=== PATIENT | male | born 1950 | race Caucasian/White ===

== ENCOUNTER 2016-11-15 | Inpatient (IN) | payer MEDICARE, OTHER ==
[~2016-11-15] VITALS: Ht 180.3 cm; Wt 91.6 kg
[~2016-11-15] MED LIST: ABILIFY DIS15 MG/TAB PO; ABILIFY PO; ALPRAZOLAM PO; AMLODIPINE BESY10 MG PO; ASPIRIN81 MG PO; BRILINTA90 MG PO; CITALOPRAM HBR40 MG PO; DEPAKOTE PO; DEPAKOTE250 MG PO; FENOFIBRATE160 MG PO; GABAPENTIN300 M2 PO; HCTZ PO; HYDROCHLOROTHIA25 MG PO; KLONOPIN PO; KLONOPIN1 MG PO; LIPITOR40 MG PO; LISINOPRIL PO; LISINOPRIL10 MG PO; LISINOPRIL20 MG PO; LORTAB 10/500 T1 TAB PO; NORVASC PO; OXYCODONE HCL10 MG PO; PROAIR HFA8.5 GM IH; REMERON45 MG PO; ROXICODONE15 MG PO; ROXICODONE30 M1 PO; SINGULAIR PO; SOMA PO; SYNTHROID25 MCG PO; TENORMIN25 MG PO; TIROSINT25 MCG PO; TYLENOL325 M1 PO; VICOPROFEN 200-1 TAB PO
--- NOTE | ~2016-11-15 | PA ---
Unit #: [id number] #: [id number] Patient: DANIEL FELIZ [id number] [facility] [address] [place] [address] [id number] I MR#: [id number] NAME: DANIEL FELIZ ROOM: P110 Age: 66 Sex: M Admission Date: 11/15/2016 : 1950 Date of Assessment: 11/08/2016 Attending Physician: Max Ferrell M.D. Admitting Physician: Max Ferrell M.D. Primary Care Physician: Generic Doctor Not In System PSYCHIATRIC ASSESSMENT DATE OF SERVICE 11/15/2016. INFORMANTS The patient, reliable; [facility] records, reliable; EPS, reliable. CHIEF COMPLAINT Suicidal ideation. HISTORY OF PRESENT ILLNESS Daniel is a 66-year-old man with a history of bipolar disorder, known to me from previous admissions and outpatient treatment. The patient reported that he wanted to and had multiple problems, especially financial where he has been giving his brother "thousands of dollars" which his brother then "lost." He felt hopeless, helpless, and could not contract for safety. [facility]. PAST PSYCHIATRIC HISTORY Last admission to this facility was in 11/2015. He has been off clonazepam since about a year ago based on his [facility] report. He is on paroxetine at this time. FAMILY PSYCHIATRIC HISTORY There is a family history of bipolar disorder. SOCIAL HISTORY The patient denied a history of childhood abuse or neglect. He is a heterosexual man with some previous legal charges. He is on long-term disability for medical issues. MEDICAL HISTORY Prostate cancer, coronary artery disease, hypothyroidism, hypertension, chronic pain. MEDICATIONS Please see MAR. ALLERGIES Codeine. SUBSTANCE ABUSE HISTORY History of occasional alcohol use. MENTAL STATUS EXAMINATION Unit #: [id number] #: [id number] Patient: DANIEL FELIZ presented as a mildly disheveled man, appearing his stated age. He was cooperative with the examination. His speech was spontaneous and easily understood. His musculoskeletal examination was calm. His mood was depressed and anxious with a congruent affect. He was alert and fully oriented. His memory and concentration were intact. His thought processes were goal directed with no active psychosis. He reported suicidal ideation with a plan to use a knife and could not contract for safety. Insight and judgment, fair. Fund of knowledge and abstraction, fair. ASSETS AND LIABILITIES The patient knows local resources and is presenting voluntarily for treatment. Liabilities include financial, medical, and social stressors. ADMITTING DIAGNOSES AXIS I: Bipolar disorder, depressed. AXIS II: No diagnosis. AXIS III: Prostate cancer, hypertension, degenerative disk disease, diabetes, hyperlipidemia, hypothyroidism. AXIS IV: AXIS V: PSYCHIATRIC PLAN The patient was placed on suicide precautions and given of initial physical examination Remeron was continued at 30 mg at bedtime and Paxil was increased to 40 mg at bedtime with an increase in trazodone to 150 mg at bedtime. His other medications including his chronic pain management were continued. Despite his request, I was unable to restart clonazepam due to regulations on prescribing this medication outside of the hospital, and his [facility] report reveals that it has not been prescribed for almost a year. He will enroll in psychotherapy groups and activities. TREATMENT GOALS Resolution of SI, improvement in insight, and improvement in coping skills. DISCHARGE PLANNING Follow up with primary care physician. ESTIMATED LENGTH OF STAY 5 days. Dictated by... Max Ferrell M.D. [facility]/shantal TD: 11/15/2016 20:29 JOB #: [id number] Unit #: [id number] #: [id number] Patient: DANIEL FELIZ PSYCHIATRIC ASSESSMENT Page 1 of 1 X Max Ferrell MD X PSYCHIATRIC ASSESSMENT
--- NOTE | ~2016-11-15 | CO ---
Unit #: [id number] #: [id number] Patient: DANIEL FELIZ [id number] [place] [address] [id number] I MR#: [id number] NAME: DANIEL FELIZ ROOM: P110 Age: 66 Sex: M Admission Date: 11/15/2016 : 1950 Attending Physician: Max Ferrell M.D. Primary Care Physician: Generic Doctor Not In System Consultation Date: 11/17/2016 CONSULTATION REPORT SUBJECTIVE Daniel is a 66-year-old who has complained of head and chest congestion, that has increased over the past 48 hours. We have been asked to assess and treat. He has had no recorded increased temperatures or complaints of shortness of breath. He does report that cough is productive of yellow sputum. OBJECTIVE GENERAL: Alert, well nourished, in no apparent distress. VITAL SIGNS: Blood pressure 130/70, heart rate 80, respirations 16, temperature 98.6. HEENT: Normocephalic. TMs, not viewed. Oral and nasal passages clear. Conjunctivae clear. NECK: Supple without lymphadenopathy. CHEST: Clear. Harsh cough noted. Productive of yellow sputum. ASSESSMENT Upper respiratory infection. PLAN Keflex 500 mg one p.o. t.i.d. x7 days. Dictated by... Dodie Pringle/shantal TD: 11/20/2016 16:11 JOB #: [id number] CONSULTATION REPORT Page 1 of 1 X Ashley Pitts CONSULTATION REPORT
--- NOTE | ~2016-11-15 | PN ---
Unit #: [id number] #: [id number] Patient: DANIEL FELIZ [id number] [facility] [address] [place] [address] [id number] I MR#: [id number] NAME: DANIEL FELIZ ROOM: P110 Age: 66 Sex: M Admission Date: 11/15/2016 : 1950 Attending Physician: Max Ferrell M.D. Admitting Physician: Max Ferrell M.D. Primary Care Physician: Generic Doctor Not In System [employer] PROGRESS NOTES DATE OF SERVICE: 11/18/2016 DISCUSSION Daniel continues to have depressive thoughts and some irritability. He also complains of some upper respiratory symptoms today. His mood is depressed with a flat affect. He is alert and fully oriented. Memory and concentration are fair and thought processes are goal directed with no active psychosis. He does report ongoing suicidal ideation. ASSESSMENT Bipolar depressed. PLAN Continue current medications and treatment plan. Dictated by... Antonio Baltazar/shantal TD: 11/24/2016 16:10 JOB #: [id number] [facility] PROGRESS NOTES Page 1 of 1 X Max Ferrell MD PROGRESS NOTE
--- NOTE | ~2016-11-15 | PN ---
Unit #: [id number] #: [id number] Patient: DANIEL FELIZ [id number] [facility] [address] [place] [address] [id number] MR#: [id number] NAME: DANIEL FELIZ ROOM: [facility] Age: 66 Sex: M Admission Date: 11/15/2016 : 1950 Attending Physician: Max Ferrell M.D. Admitting Physician: Max Ferrell M.D. Primary Care Physician: Generic Doctor Not In System [employer] PROGRESS NOTES DATE OF SERVICE: 11/19/2016 DISCUSSION Daniel tends to stay in bed, away from the milieu and is not attending any groups or activities. He is tolerating his increase in paroxetine with no adverse side effects. His mood is depressed with a downcast affect. He is alert and fully oriented with no active psychosis, but ongoing SI. ASSESSMENT Bipolar depressed. PLAN Continue current treatment plan. Dictated by... Antonio BaltazarH/shantal TD: 11/26/2016 05:55 JOB #: [id number] [facility] PROGRESS NOTES Page 1 of 1 X Max Ferrell MD PROGRESS NOTE
--- NOTE | ~2016-11-15 | HP ---
Unit #: [id number] #: [id number] Patient: DANIEL FELIZ [id number] [place] [address] [id number] I MR#: [id number] NAME: DANIEL FELIZ ROOM: P110 Age: 66 Sex: M Admission Date: 11/15/2016 : 1950 Attending Physician: Max Ferrell M.D. Admitting Physician: Max Ferrell M.D. Primary Care Physician: Generic Doctor Not In System HISTORY AND PHYSICAL HISTORY OF PRESENT ILLNESS Daniel is a 66-year-old male admitted on 11/15/[address] [place] [address] for suicidal ideation. PAST MEDICAL HISTORY 1. Arthritis. 2. Prostate cancer diagnosed in 2008. 3. Hypertension. 4. Coronary artery disease. 5. GERD. 6. Spinal stenosis. 7. Chronic back pain. 8. Hypothyroidism. PAST SURGICAL HISTORY Cardiac stents. ALLERGIES Codeine and BuSpar. SOCIAL HISTORY Denies tobacco, alcohol or illegal drug use. He is currently and living with his friend. FAMILY HISTORY Noncontributory. REVIEW OF SYSTEMS CONSTITUTIONAL: No fever or chills. HEENT: Denies any sore throat, ear pain or runny nose. CARDIOVASCULAR: Denies chest pain, irregular heart rhythm or palpitations. CHEST: Denies shortness of breath or cough. No hemoptysis. GASTROINTESTINAL: Denies nausea, vomiting, diarrhea or chronic constipation. ENDOCRINE: Denies history of increased thirst or urination. No recent significant weight loss or gain. GENITOURINARY: Denies dysuria, frequency, or hematuria. SKIN: Denies any rashes. HEMATOLOGIC: Denies history of increased bleeding or bruising. MUSCULOSKELETAL: Denies any hot, swollen joints. No generalized muscle pain. NEUROLOGIC: Denies problems with vision or speech. No frequent, severe headaches. No numbness, tingling or weakness in any extremities. Denies Unit #: [id number] #: [id number] Patient: DANIEL FELIZ loss of bladder or bowel control. CURRENT MEDICATIONS 1. Amlodipine. 2. Aspirin. 3. Atorvastatin. 4. Brilinta. 5. Carvedilol. 6. Celexa. 7. Clonazepam. 8. Fish oil. 9. Fenofibrate. 10. Levothyroxine. 11. Lisinopril. 12. Loratadine. 13. Neurontin. 14. Oxycodone. 15. Singulair. PHYSICAL EXAMINATION GENERAL: Alert, oriented, in no acute distress. VITAL SIGNS: Blood pressure 114/87, heart rate 119, respirations 18, temperature 98.1. HEIGHT: 5 feet 11. WEIGHT: 202 pounds. SKIN: Warm and dry without rash or lesion. HEENT: Normocephalic. TMs not viewed. Oral and nasal passages clear. Conjunctivae clear. PERRLA. EOMs intact. NECK: Supple without lymphadenopathy or thyromegaly. HEART: Regular rate and rhythm without murmur. LUNGS: Clear. ABDOMEN: Soft, nontender, without masses or hepatosplenomegaly. : Not done. EXTREMITIES: No evidence of cyanosis, clubbing or edema. Moves all without focal deficit. NEUROLOGICAL: Grossly within normal limits. Cranial Nerves: II: Visual medrano are intact. III, IV AND : Extraocular movements are intact. Pupils are equal, round and reactive to light. V: Facial sensation is grossly normal. VII: Facial movements and expression are normal. VIII: Auditory acuity grossly intact. IX, X: Uvula is midline. Phonation is normal. XI: Patient shrugs shoulders and turns head normally. XII: Tongue protrudes in the midline. Sensory and Motor Function: Sensory and motor sensation is grossly normal. Motor: moves all extremities well. Coordination: Gait is normal. Deep Tendon Reflexes: Intact. IMPRESSION 1. Psychiatric admission. 2. Arthritis. 3. Prostate cancer. 4. Hypertension. 5. Coronary artery disease. 6. Gastroesophageal reflux disease. 7. Spinal stenosis. 8. Chronic back pain. 9. Hypothyroidism. Unit #: [id number] #: [id number] Patient: DANIEL FELIZ RECOMMENDATIONS PSYCHIATRIC: Per psychiatrist. MEDICAL: No contraindication to participate in facility's activities. MEDICAL PROGNOSIS Good. MEDICAL CONDITION Stable. Dictated by... Omero Bran/xochitl TD: 11/15/2016 16:26 JOB #: [id number] HISTORY AND PHYSICAL Page 1 of 1 X OBDULIO WATSON APRN X HISTORY AND PHYSICAL
--- NOTE | ~2016-11-15 | PN ---
Unit #: [id number] #: [id number] Patient: DANIEL FELIZ [id number] [facility] [address] [place] [address] [id number] I MR#: [id number] NAME: DANIEL FELIZ ROOM: P110 Age: 66 Sex: M Admission Date: 11/15/2016 : 1950 Attending Physician: Max Ferrell M.D. Admitting Physician: Max Ferrell M.D. Primary Care Physician: Generic Doctor Not In System [facility] PROGRESS NOTES DATE 11/16/2016 DISCUSSION Daniel is doing a little bit better on the unit, and slept better last night. His mood remains depressed with a little bit brighter range of affect. He is alert and fully oriented. His memory and concentration are [id number] and his thought processes are logical with no active psychosis. He does continue to endorse suicidal ideation. ASSESSMENT Bipolar depressed. PLAN Continue current treatment plan, anticipating transfer to [address] [place] [address] when a bed becomes available. Dictated by... Antonio Baltazar/jenifer TD: 11/17/2016 11:38 JOB #: [id number] [facility] PROGRESS NOTES Page 1 of 1 X Max Ferrell MD PROGRESS NOTE
--- NOTE | ~2016-11-15 | PN ---
Unit #: [id number] #: [id number] Patient: DANIEL FELIZ [id number] [facility] [address] [place] [address] [id number] I MR#: [id number] NAME: DANIEL FELIZ ROOM: P110 Age: 66 Sex: M Admission Date: 11/15/2016 : 1950 Attending Physician: Max Ferrell M.D. Admitting Physician: Max Ferrell M.D. Primary Care Physician: Generic Doctor Not In System [facility] PROGRESS NOTES DATE 11/17/2016 DISCUSSION Daniel continues to sleep better with the increase in Paxil and trazodone. He complains of hunger and states that he is unable to "eat food." Although, he is not able to explain if this is due to nausea, stomach upset, or other reasons. He remains depressed with a congruent affect and continues to endorse suicidal ideation. He has no active psychosis. ASSESSMENT Bipolar, depressed. PLAN We will provide Ensure and continue current medications. Dictated by... Max Ferrell M.D. [employer]/xochitl TD: 11/18/2016 22:52 JOB #: [id number] [facility] PROGRESS NOTES Page 1 of 1 X Max Ferrell MD PROGRESS NOTE
== END 2016-11-22 10:00 | disposition home or self-care (01) | DRG 885 ==
LOC: P1S 01:26
DX: F31.9 Bipolar disorder, unspecified (principal); C61 Malignant neoplasm of prostate; E11.9 Type 2 diabetes mellitus without complications; I10 Essential (primary) hypertension; E78.5 Hyperlipidemia, unspecified; E03.9 Hypothyroidism, unspecified; I25.10 Atherosclerotic heart disease of native coronary artery without angina pectoris; K21.9 Gastro-esophageal reflux disease without esophagitis; Z79.82 Long term (current) use of aspirin; J06.9 Acute upper respiratory infection, unspecified